=== PATIENT | male | born 1975 | race Two or more races ===

== ENCOUNTER 2016-10-09 14:58 | Emergency (ER) | payer SELFPAY ==
--- NOTE | ~2016-10-09 | ER ---
PATIENT'S NAME: [facility] AGE: 41 Y [address] ROOM: [place] [address] LOCATION: [facility] ADMIT DATE: 10/09/2016 ER/Outpatient Report DISCHARGE DATE: 10/09/2016 FAMILY PHYSICIAN: PHYSICIAN, NO ATTENDING PHYSICIAN: Ursula Wood SEEN AT: 1505 hours. HISTORY OF PRESENT ILLNESS: The patient is a 41-year-old male, who said he was using a chemical called Tempo SC Ultra, which is a medication used on horses for fly control. The patient states it was a liquid, he accidentally had some on his fingers when he rubbed across his mouth. The patient presents today complaining of some burning sensation on the right side of his face. He denied any difficulty swallowing or swelling or respiratory problems. ALLERGIES: NO MEDICINAL ALLERGIES. HOME MEDICATIONS: None. MEDICAL HISTORY: No chronic diseases. SURGERIES: None. SOCIAL HISTORY: Nonsmoker. REVIEW OF SYSTEMS: GENERAL: General health good. HEAD/EENT: Includes just some symptoms of burning on the right side of his face. He denied any difficulty swallowing or swelling of his tongue. RESPIRATORY: No cough or wheezing. SKIN: No other rash or hives. PHYSICAL EXAMINATION: VITAL SIGNS: His blood pressure was 161/96, his temperature was 96.9, his respiratory rate 20, pulse 81, and O2 saturation was 96%. GENERAL APPEARANCE: In no obvious distress. He did speak fairly good [place]. FACE: Could see no swelling. There was no redness or rash present. PATIENT'S NAME: [facility] AGE: 41 Y [address] ROOM: [place] [address] LOCATION: [facility] ADMIT DATE: 10/09/2016 ER/Outpatient Report DISCHARGE DATE: 10/09/2016 FAMILY PHYSICIAN: PHYSICIAN, NO ATTENDING PHYSICIAN: Ursula Wood MOUTH: Tongue appeared normal. Posterior pharynx was clear. LUNGS: Clear. ASSESSMENT: Chemical exposure with burning, right-side of his face. PLAN: We did talk to Poison Control concerning the chemical and they reported no significant toxicity and had no recommendations. The patient was advised of Poison Control's recommendations and understood that the burning sensation probably is not related to the medicine. Recommend follow up if he has any further concerns. ARCHANA PETE MD SWJ/lakshmi /[id number] d: 10/09/[id number] t: 10/13/16 0643, OUTPATIENT REPORT
== END 2016-10-09 15:36 | disposition disaster alternative care site (69) ==
LOC: GMED 14:58
DX: Z77.098 Contact with and (suspected) exposure to other hazardous, chiefly nonmedicinal, chemicals (principal)